=== PATIENT | female | born 1995 | race Caucasian/White ===

== ENCOUNTER 2016-05-24 21:44 | Day surgery (SDC) | payer OTHER ==
[~2016-05-24] VITALS: Ht 167.6 cm; Wt 153.7 kg
[2016-05-25] MEDS ORDERED: MORPHINE 2 MG/ML 1ML SYRINGE As Ordered ONE (00:15)
[2016-05-25] MEDS ORDERED: ISOVUE-370 76% 100ML VIAL (Q9967) As Ordered ONE (00:17)
[2016-05-25 00:55] LABS: BASO % 0.2 % (0.0-1.0); EOS # 0.2 K/mm3 (0.0-0.50); EOS % 1.2 % (0.0-3.0); LARGE UNSTAINED CELL # 0.2 K/mm3 (0.0-0.4); LARGE UNSTAINED CELL % 1.4 % (0.0-4.0); LYMPH # 3.9 K/mm3 (1.5-6.5); MEAN CORPUSCULAR HEMOGLOBIN 26.6 pg (27.0-33.0); MEAN CORPUSCULAR HGB CONC 32.1 g/dl (32.0-36.5); MEAN CORPUSCULAR VOLUME 82.8 fl (80.0-96.0); MONO # 0.7 K/mm3 (0.0-0.8); MONO % 5.4 % (0.0-5.0); NEUTROPHILS # 8.1 K/mm3 (1.8-7.7); NEUTROPHILS % 61.7 % (36.0-66.0); PLATELET COUNT, AUTOMATED 351 k/mm3 (150-450); RED CELL DISTRIBUTION WIDTH 14.2 % (11.5-14.5)
[2016-05-25 00:59] LABS: CONTROL LINE HCG INT CTR LINE PRESENT
[2016-05-25 01:03] LABS: ALBUMIN 3.3 GM/DL (3.2-5.2); ALBUMIN/GLOBULIN RATIO 0.85 (1.00-1.93); ALKALINE PHOSPHATASE 106 U/L (45-117); ALT/SGPT 39 U/L (12-78); AMYLASE 32 U/L (25-115); ANION GAP 6 MEQ/L (8-16); AST/SGOT 29 U/L (15-37); BILIRUBIN,DIRECT < 0.1 MG/DL (0.0-0.2); BILIRUBIN,TOTAL 0.3 MG/DL (0.2-1.0); BLOOD UREA NITROGEN 11 MG/DL (7-18); CALCIUM LEVEL 8.4 MG/DL (8.5-10.1); CARBON DIOXIDE LEVEL 30 MEQ/L (21-32); CHLORIDE LEVEL 106 MEQ/L (98-107); CREATININE FOR GFR 0.79 MG/DL (0.55-1.02); GLUCOSE, FASTING 91 MG/DL (70-105); POTASSIUM SERUM 3.5 MEQ/L (3.5-5.1); SODIUM LEVEL 142 MEQ/L (136-145); TOTAL PROTEIN 7.2 GM/DL (6.4-8.2)
--- NOTE | 2016-05-25 02:10 | REPUSA ---
CLINICAL HISTORY: Abdominal pain. TECHNIQUE: Multiple axial, sagittal and coronal CT images were obtained through the abdomen and pelvi s after administration of intravenous contrast material. COMMENTS: Enlarged appendix measuring 1.2 cm. Surrounding inflammatory changes. Mildly enlarged adjacent lymph nodes with largest measuring 1.2 cm. The liver is moderately enlarged with decreased attenuation without mass or defect. There is no intra or extrahepatic biliary ductal dilatation. The spleen is normal. The gallbladder is within normal li mits. The pancreas is of normal contour and attenuation characteristics. There is no evidence of adre nal mass. Both kidneys demonstrate prompt and equal nephrograms. The kidneys are normal in size, shape and conf iguration. There is no evidence of renal or ureteral mass. No renal or ureteral calculi are identifie d. There is no hydroureter or hydronephrosis. No evidence for appendicitis. There is no bowel wall thickening. No evidence for small or large miek l obstruction. There is no evidence of abdominal ascites or lymphadenopathy. Mild changes of mesenteric panniculitis. There is no evidence of intrinsic or extrinsic bladder mass. There is no pelvic ascites or lymphadeno wyatt. Mild diffuse thickening of the wall of the bladder. Images of the lung bases show no evidence of pleural or parenchymal mass. There are no pleural effusi ons. The bony structures are free of lytic or blastic lesions. Multilevel degenerative changes are seen in volving the thoracolumbar spine. Scattered calcifications are seen involving the aorta and major bran ches compatible with atherosclerosis. IMPRESSION: Acute appendicitis. No perforation or abscess formation. Thank you for your kind referral of this patient.
[2016-05-25] MEDS ORDERED: ZOSYN 3.375 GM VIAL (J2543) As Ordered ONE (02:27)
[2016-05-25] MEDS ORDERED: HYDROmorphone HCL 1 MG/ML SYRINGE (J1170) As Ordered ONE (02:49)
[2016-05-25] MEDS ORDERED: ACET50TAOT PO (03:01)
[2016-05-25] MEDS ORDERED: NEXI40CA PO (03:01)
[2016-05-25] MEDS ORDERED: XANA0.5T PO (03:01)
[2016-05-25] MEDS ORDERED: LEXA1TAB PO (03:01)
[2016-05-25] MEDS ORDERED: MORPHINE 2 MG/ML 1ML SYRINGE IV PRN ×2 (03:45→06:45)
[2016-05-25] MEDS ORDERED: KETOROLAC 30 MG/ML VIAL (J1885) IV PRN ×2 (03:45→06:45)
[2016-05-25] MEDS ORDERED: ONDANSETRON 4MG/2ML VIAL (J2405) IV PRN ×2 (03:45→06:30)
[2016-05-25] MEDS ORDERED: LR 1,000 ML IV SCH ×3 (03:45→06:45)
[2016-05-25] MEDS ORDERED: BUPIVACAINE HCL 0.25% 30 ML VIAL As Ordered ONE (04:07)
[2016-05-25] MEDS ORDERED: fentaNYL 250 MCG/5 ML INJECTION (J3010) As Ordered ONE (04:48)
[2016-05-25] MEDS ORDERED: MIDAZOLAM INJ 2 MG/2 ML VIAL (J2250) As Ordered ONE (04:48)
--- NOTE | 2016-05-25 04:48 | EDDOCDS ---
Physician Documentation [facility] Name: Cristine Saldana Age: 20 yrs Sex: Female : 1995 Arrival Date: 05/24/2016 Time: 21:44 Bed 24 Private MD: LAUREL Robin Disposition: 05/25/16 02:22 Hospitalization ordered by Abiel Thrasher for Inpatient Admission. Preliminary diagnosis is Acute appendicitis with localized peritonitis. - Bed requested for 4 Golf. - Status is Inpatient Admission. kas2 - Condition is Stable. - Problem is new. - Symptoms are unchanged. Historical: - Allergies: SULFA (SULFONAMIDES); - Home Meds: 1. Klonopin 1 mg nightly 2. xanax 1 mg PRN when leaving the house 3. Lexapro 10 mg Oral tab 1 tab once daily - PMHx: Agoraphobia; Anxiety; Panic Disorder; Depression; - PSHx: none; - Social history: Smoking status: Patient states was never smoker of tobacco. No barriers to communication noted, The patient speaks fluent Bermudian, Speaks appropriately for age. - Family history: Not pertinent. - : The pt / caregiver states he / she is not on anticoagulants. Home medication list is obtained from the patient. - Exposure Risk Screening:: None identified. MANAGER OPERATIONS AND PROCUREMENT: 05/24 21:47 LMP 04/30/2016 jyoti Vital Signs: 21:45 BP 138 / 84; Pulse 82; Resp 18; Temp 98.7(O); Pulse Ox 96% on R/A; Weight 149.69 kg / dem1 330.01 lbs; Height 5 ft. 6 in. (167.64 cm); Pain 7/10; 05/25 01:07 BP 139 / 72; Pulse 80; Resp 20; Pulse Ox 99% on R/A; Pain 4/10; kas2 01:07 BP 139 / 72; Pulse 80; Resp 20; Pulse Ox 99% on R/A; Pain 2/10; kas2 02:58 Resp 18; Temp 97.2(O); kas2 03:55 BP 142 / 69; Pulse 82; Resp 18; Temp 98.1(O); Pulse Ox 99% ; Pain 0/10; kas2 03:56 BP 142 / 69; Pulse 82; Resp 18; Temp 98.1(O); Pulse Ox 99% ; Pain 0/10; kas2 02 21:45 Body Mass Index 53.26 (149.69 kg, 167.64 cm) dem1 MDM: 00:11 IV Saline Lock ordered. cs11 00:11 NS 0.9% 1000 ml IV at bolus once ordered. cs11 00:11 morphine 2 mg IVP once ordered. cs11 00:12 CBC with Diff Ordered. EDMS 00:12 MED Profile Ordered. EDMS 00:12 Liver Profile Ordered. EDMS 00:12 Amylase Ordered. EDMS 00:12 Lipase Ordered. EDMS 00:12 Urinalysis Ordered. EDMS 00:12 Urine Culture Ordered. EDMS 00:12 HCG,Serum Qualitative Ordered. EDMS 00:13 CT ABD & PELVIS: IV Contrast Only Ordered. EDMS 01:09 Financial registration complete. pm4 02:14 CBC with Diff Reviewed. cs11 02:14 MED Profile Reviewed. cs11 02:14 Liver Profile Reviewed. cs11 02:14 Urinalysis Reviewed. cs11 02:14 Amylase Reviewed. cs11 02:14 Lipase Reviewed. cs11 02:14 HCG,Serum Qualitative Reviewed. cs11 02:19 BED REQUEST+ADM ordered. EDMS 02:20 Piperacillin-Tazobactam 3.375 grams IVPB once over 30 mins; dilute in 50mL of NS or D5W cs11 ordered. 02:41 [facility] Payment Agreement was scanned into [employer] and attached to record. hs2 02:46 Dilaudid - HYDROmorphone 0.5 mg IVP once ordered. cs11 03:51 Admission / Observation Status ordered. EDMS 03:51 NPO DIET ordered. EDMS 04:38 Admission Orders was scanned into [employer] and attached to record. pm4 Administered Medications: 00:32 Drug: NS 0.9% 1000 ml [sodium chloride 0.9 % intravenous solution] Route: IV; Rate: kas2 bolus; Site: left antecubital; 00:32 Drug: morphine 2 mg [morphine 2 mg/mL intravenous cartridge (1 mL)] Route: IVP; Site: kas2 left antecubital; 01:07 Follow up: BP 139 / 72; Pulse 80 bpm; Resp 20 bpm; Pulse Ox 99% RA; Pain 2/10 Adult; kas2 Response: No Adverse Reaction; Pain is decreased 02:39 Drug: Piperacillin-Tazobactam 3.375 grams [piperacillin-tazobactam 3.375 gram mv5 intravenous solution] Route: IVPB; Infused Over: 30 mins; Site: left antecubital; 02:52 Drug: Dilaudid - HYDROmorphone 0.5 mg [hydromorphone 1 mg/mL injection syringe (0.5 kas2 mL)] Route: IVP; Site: left antecubital; 03:56 Follow up: BP 142 / 69; Pulse 82 bpm; Resp 18 bpm; Temp 98.1 Oral; Pulse Ox 99% ; Pain kas2 0/10 Adult 03:56 Follow up: Response: No Adverse Reaction; Pain is decreased kas2 Signatures: Dispatcher [employer] EDMS Sotero Montoya, DO DO cs11 Alex Rodriguez RN RN Genaro Priest, TOOL MAKER BENCH TOOL MAKER BENCH mdr Annita Suazo, Reg Reg hs2 Charlene Song RN RN kas2 Kaiser Wilder, Reg Reg pm4 Emma Edmondson RN mv5 The chart was reviewed and I authenticate all verbal orders and agree with the evaluation and treatment provided.Attachments: 02:41 [facility] Payment Agreement hs2 04:38 Admission Orders pm4 MTDD
[2016-05-25] MEDS ORDERED: ONDANSETRON 4MG/2ML VIAL (J2405) As Ordered ONE (04:49)
[2016-05-25] MEDS ORDERED: PROPOFOL 200 MG/20 ML VIAL As Ordered ONE (04:49)
[2016-05-25] MEDS ORDERED: ROCURONIUM BROMIDE 50 MG/5 ML VIAL As Ordered ONE (04:49)
[2016-05-25] MEDS ORDERED: KETOROLAC 60 MG/2 ML VIAL (J1885) As Ordered ONE (04:49)
[2016-05-25] MEDS ORDERED: LIDOCAINE 2% INJ 100 MG/5 ML SDV (FOR ANES.) As Ordered ONE (04:49)
--- NOTE | 2016-05-25 04:49 | EDDOCDS ---
Nurse's Notes [facility] Name: Cristine Saldana Age: 20 yrs Sex: Female : 1995 Arrival Date: 05/24/2016 Time: 21:44 Bed 24 Private MD: LAUREL Robin Diagnosis: Acute appendicitis with localized peritonitis Presentation: 05/24 21:46 Presenting complaint: Patient states: Patient reports that stomach pain. Patient jmb reports that it has been present for couple of days. Patient reports when symptoms occurred in past, would go on bland diet and goes away but this time did not. Patient denies calling primary for symptoms. Risk factors: the patient reports no vaginal bleeding. Adult Sepsis Screening: The patient does not have new or worsening altered mentation. Patient's respiratory rate is less than 22. Systolic blood pressure is greater than 100. Patient has a qSOFA score of 0- Negative Sepsis Screen. Suicide/Homicide risk assessment- the patient denies having any suicidal and/or homicidal ideations and does not present with any other emotional, behavioral or mental health complaints. Status: Patient is not a lineman service or work dispatcher or dependent. Transition of care: patient was not received from another setting of care. 21:46 Acuity: DANILO Level 3 [facility] 21:46 Method Of Arrival: Walkin/Carried/Asstd [facility] Triage Assessment: 21:47 General: Appears uncomfortable, Behavior is appropriate for age, cooperative. Pain: jmb Location: abdomen Pain currently is 7 out of 10 on a pain scale. HIV screening NA for this visit Offered previously. Neurological: Level of Consciousness is awake, alert, obeys commands, Oriented to person, place, time. Respiratory: Airway is patent Respiratory effort is even, unlabored, Respiratory pattern is regular, symmetrical. GI: Abdomen is obese. Derm: Skin is pink, warm & dry. Musculoskeletal: Range of motion intact in all extremities. 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 Klonopin 1 mg nightly 2. xanax 1 mg PRN when leaving the house 3. Lexapro 10 mg Oral tab 1 tab once daily - PMHx: Agoraphobia; Anxiety; Panic Disorder; Depression; - PSHx: none; - Social history: Smoking status: Patient states was never smoker of tobacco. No barriers to communication noted, The patient speaks fluent Uzbek, Speaks appropriately for age. - Family history: Not pertinent. - : The pt / caregiver states he / she is not on anticoagulants. Home medication list is obtained from the patient. - Exposure Risk Screening:: None identified. Screenin:52 Screening information is obtained from the patient. Fall risk: No risks identified. kas2 Assistance ADL's: requires no assistance with activities of daily living. Abuse/DV Screen: The patient / caregiver reports he/she is: not in a situation that causes fear, pain or injury. Nutritional screening: No deficits noted. Advance Directives: Currently, there is no health care proxy. There is no active DNR order. There is no living will. There is no Power of Stretch Box Tender. home support is adequate. Assessment: 23:49 General: Appears in no apparent distress, comfortable, well nourished, well groomed, kas2 Behavior is appropriate for age, cooperative. Pain: Location: abdomen Pain currently is 8 out of 10 on a pain scale. Neurological: Level of Consciousness is awake, alert, Oriented to person, place, time. Cardiovascular: Capillary refill < 3 seconds Heart tones S1 S2 present Rhythm is regular. Respiratory: Airway is patent Respiratory effort is even, unlabored, Respiratory pattern is regular, symmetrical, Breath sounds are clear bilaterally. GI: Abdomen is obese, Bowel sounds present X 4 quads. Abd is tender to palpation X 4 quads. Derm: Skin is intact, Skin is dry, Skin is normal, Skin temperature is warm. 05/25 01:42 General: Appears in no apparent distress, comfortable, Behavior is appropriate for age, kas2 cooperative. Pain: Location: abdomen Pain currently is 3 out of 10 on a pain scale. Neurological: Level of Consciousness is awake, alert, Oriented to person, place, time. Cardiovascular: Rhythm is regular. Respiratory: Airway is patent Respiratory effort is even, unlabored, Respiratory pattern is regular, symmetrical. Derm: Skin is intact, Skin is dry, Skin is pink, warm & dry. Skin temperature is warm. 02:52 General: Patient resting in bed talking on the phone. Patient complaining of pain in kas2 abdomen 5/10. Meds given. No apparent distress. Airway patent and respiratory effort even and unlabored. Call dela cruz within reach. Will continue to monitor.. 03:58 General: Appears in no apparent distress, comfortable, Behavior is appropriate for age, kas2 cooperative. Pain: Denies pain. Neurological: Level of Consciousness is awake, alert, Oriented to person, place, time. Cardiovascular: Rhythm is regular. Respiratory: Airway is patent Respiratory effort is even, unlabored, Respiratory pattern is regular, symmetrical. Derm: Skin is intact, Skin is dry, Skin is pink, warm & dry. Skin temperature is warm. 04:10 General: Patient taken down to OR with RN and tech on stretcher. Verbal report given to [facility]lee CVICU NURSE.. Vital Signs: 05/24 21:45 BP 138 / 84; Pulse 82; Resp 18; Temp 98.7(O); Pulse Ox 96% on R/A; Weight 149.69 kg; [facility] Height 5 ft. 6 in. (167.64 cm); Pain 7/10; 05/25 01:07 BP 139 / 72; Pulse 80; Resp 20; Pulse Ox 99% on R/A; Pain 4/10; [facility] 01:07 BP 139 / 72; Pulse 80; Resp 20; Pulse Ox 99% on R/A; Pain 2/10; [facility] 02:58 Resp 18; Temp 97.2(O); [facility] 03:55 BP 142 / 69; Pulse 82; Resp 18; Temp 98.1(O); Pulse Ox 99% ; Pain 0/10; [facility] 03:56 BP 142 / 69; Pulse 82; Resp 18; Temp 98.1(O); Pulse Ox 99% ; Pain 0/10; [facility] 05/24 21:45 Body Mass Index 53.26 (149.69 kg, 167.64 cm) [facility] Vitals: 02 21:45 Log In Time: May 24, 2016 at 21:44. [facility] ED Course: 21:45 Patient visited by Trina Crain. [facility] 21:45 LAUREL Robin is Private Physician. [facility] 21:45 Patient moved to Waiting dem1 21:46 Patient moved to Pre RCE dem1 21:47 Triage Initiated [facility] 23:28 Kathrine Cornejo,RN is Primary Nurse. [facility] 23:28 Charlene Song RN is Primary Nurse. [facility] 23:28 Patient moved to [facility] 23:35 Patient visited by Charlene Song RN. kas2 23:53 Patient visited by Charlene Song RN. kas2 23:56 Sotero Montoya DO is Attending Physician. cs11 23:56 Patient visited by Sotero Montoya DO. cs11 23:57 Primary Nurse role handed off by Kathrine Cornejo RN flori 0207 00:32 CBC with Diff Sent. kas2 00:32 MED Profile Sent. kas2 00:32 Liver Profile Sent. kas2 00:32 Amylase Sent. kas2 00:32 Lipase Sent. kas2 00:32 Urinalysis Sent. kas2 00:32 Urine Culture Sent. kas2 00:32 HCG,Serum Qualitative Sent. kas2 00:33 Patient visited by Charlene Song RN. kas2 00:33 Inserted saline lock: 20 gauge in left antecubital area and blood collected. The kas2 patient tolerated the procedure well. No procedures done that require assistance. 01:08 Patient visited by Charlene Song RN. kas2 01:43 Patient visited by Charlene Song RN. kas2 02:15 Patient visited by Charlene Song RN. kas2 02:21 Abiel Thrasher is Hospitalizing Provider. cs11 02:41 [facility] Payment Agreement was scanned into [employer] and attached to record. hs2 02:41 CT ABD & PELVIS: IV Contrast Only Returned. EDMS 02:55 Patient visited by Charlene Song RN. kas2 02:59 Patient visited by Charlene Song RN. kas2 04:11 Patient visited by Charlene Song RN. kas2 04:29 Patient moved to 24 folri 04:38 Admission Orders was scanned into [employer] and attached to record. pm4 04:46 The patient / caregiver is instructed regarding the plan of care and ED course. kas2 04:47 Patient visited by Charlene Song RN. kas2 Administered Medications: 00:32 Drug: NS 0.9% 1000 ml [sodium chloride 0.9 % intravenous solution] Route: IV; Rate: kas2 bolus; Site: left antecubital; 00:32 Drug: morphine 2 mg [morphine 2 mg/mL intravenous cartridge (1 mL)] Route: IVP; Site: [facility] left antecubital; 01:07 Follow up: BP 139 / 72; Pulse 80 bpm; Resp 20 bpm; Pulse Ox 99% RA; Pain 2/10 Adult; kas2 Response: No Adverse Reaction; Pain is decreased 02:39 Drug: Piperacillin-Tazobactam 3.375 grams [piperacillin-tazobactam 3.375 gram mv5 intravenous solution] Route: IVPB; Infused Over: 30 mins; Site: left antecubital; 02:52 Drug: Dilaudid - HYDROmorphone 0.5 mg [hydromorphone 1 mg/mL injection syringe (0.5 kas2 mL)] Route: IVP; Site: left antecubital; 03:56 Follow up: BP 142 / 69; Pulse 82 bpm; Resp 18 bpm; Temp 98.1 Oral; Pulse Ox 99% ; Pain kas2 0/10 Adult 03:56 Follow up: Response: No Adverse Reaction; Pain is decreased kas2 Order Results: Lab Order: CBC with Diff; SPEC'M 05/25/16 00:26 Test: WHITE BLOOD COUNT; Value: 13.0; Range: 4.0-10.0; Abnormal: Above high normal; Units: K/mm3; Status: F Test: RED BLOOD COUNT; Value: 4.85; Range: 4.00-5.40; Units: M/mm3; Status: F Test: HEMOGLOBIN; Value: 12.9; Range: 12.0-16.0; Units: g/dl; Status: F Test: HEMATOCRIT; Value: 40.2; Range: 36.0-47.0; Units: %; Status: F Test: MEAN CORPUSCULAR VOLUME; Value: 82.8; Range: 80.0-96.0; Units: fl; Status: F Test: MEAN CORPUSCULAR HEMOGLOBIN; Value: 26.6; Range: 27.0-33.0; Abnormal: Below low normal; Units: pg; Status: F Test: MEAN CORPUSCULAR HGB CONC; Value: 32.1; Range: 32.0-36.5; Units: g/dl; Status: F Test: RED CELL DISTRIBUTION WIDTH; Value: 14.2; Range: 11.5-14.5; Units: %; Status: F Test: PLATELET COUNT, AUTOMATED; Value: 351; Range: 150-450; Units: k/mm3; Status: F Test: NEUTROPHILS %; Value: 61.7; Range: 36.0-66.0; Units: %; Status: F Test: LYMPH %; Value: 30.0; Range: 24.0-44.0; Units: %; Status: F Test: MONO %; Value: 5.4; Range: 0.0-5.0; Abnormal: Above high normal; Units: %; Status: F Test: EOS %; Value: 1.2; Range: 0.0-3.0; Units: %; Status: F Test: BASO %; Value: 0.2; Range: 0.0-1.0; Units: %; Status: F Test: LARGE UNSTAINED CELL %; Value: 1.4; Range: 0.0-4.0; Units: %; Status: F Test: NEUTROPHILS #; Value: 8.1; Range: 1.8-7.7; Abnormal: Above high normal; Units: K/mm3; Status: F Test: LYMPH #; Value: 3.9; Range: 1.5-6.5; Units: K/mm3; Status: F Test: MONO #; Value: 0.7; Range: 0.0-0.8; Units: K/mm3; Status: F Test: EOS #; Value: 0.2; Range: 0.0-0.50; Units: K/mm3; Status: F Test: BASO #; Value: 0.0; Range: 0.0-0.2; Units: K/mm3; Status: F Test: LARGE UNSTAINED CELL #; Value: 0.2; Range: 0.0-0.4; Units: K/mm3; Status: F Lab Order: [facility]; [facility]'M 05/25/16 00:26 Test: GLUCOSE, FASTING; Value: 91; Range: 70-105; Units: MG/DL; Status: F Test: BLOOD UREA NITROGEN; Value: 11; Range: 7-18; Units: MG/DL; Status: F Test: CREATININE FOR GFR; Value: 0.79; Range: 0.55-1.02; Units: MG/DL; Status: F Test: SODIUM LEVEL; Value: 142; Range: 136-145; Units: MEQ/L; Status: F Test: POTASSIUM SERUM; Value: 3.5; Range: 3.5-5.1; Units: MEQ/L; Status: F Test: CHLORIDE LEVEL; Value: 106; Range: 98-107; Units: MEQ/L; Status: F Test: CARBON DIOXIDE LEVEL; Value: 30; Range: 21-32; Units: MEQ/L; Status: F Test: ANION GAP; Value: 6; Range: 8-16; Abnormal: Below low normal; Units: MEQ/L; Status: F Test: CALCIUM LEVEL; Value: 8.4; Range: 8.5-10.1; Abnormal: Below low normal; Units: MG/DL; Status: F Lab Order: Liver Profile; 05/25/16:26 Test: AST/SGOT; Value: 29; Range: 15-37; Units: U/L; Status: F Test: ALT/SGPT; Value: 39; Range: 12-78; Units: U/L; Status: F Test: ALKALINE PHOSPHATASE; Value: 106; Range: 45-117; Units: U/L; Status: F Test: BILIRUBIN,TOTAL; Value: 0.3; Range: 0.2-1.0; Units: MG/DL; Status: F Test: BILIRUBIN,DIRECT; Value: < 0.1; Range: 0.0-0.2; Units: MG/DL; Status: F Test: TOTAL PROTEIN; Value: 7.2; Range: 6.4-8.2; Units: GM/DL; Status: F Test: ALBUMIN; Value: 3.3; Range: 3.2-5.2; Units: GM/DL; Status: F Test: ALBUMIN/GLOBULIN RATIO; Value: 0.85; Range: 1.00-1.93; Abnormal: Below low normal; Status: F Lab Order: Amylase; 05/25/16:26 Test: AMYLASE; Value: 32; Range: 25-115; Units: U/L; Status: F Lab Order: Lipase; 05/25/16:26 Test: LIPASE; Value: 140; Range: 73-393; Units: U/L; Status: F Lab Order: Urinalysis; 05/25/16:26 Test: APPEARANCE, URINE; Value: CLOUDY; Range: CLEAR; Abnormal: Above high normal; Status: F Test: COLOR, URINE; Value: YELLOW; Range: YELLOW; Status: F Test: PH,URINE; Value: 6.0; Range: 5.0-9.0; Units: UNITS; Status: F Test: SPECIFIC GRAVITY URINE AUTO; Value: 1.032; Range: 1.002-1.035; Status: F Test: PROTEIN, URINE AUTO; Value: 1+; Range: NEGATIVE; Abnormal: Above high normal; Units: mg/dL; Status: F Test: GLUCOSE, URINE (UA) AUTO; Value: NEGATIVE; Range: NEGATIVE; Units: mg/dL; Status: F Test: KETONE, URINE AUTO; Value: TRACE; Range: NEGATIVE; Abnormal: Above high normal; Units: mg/dL; Status: F Test: UROBILINOGEN, URINE AUTO; Value: 4.0; Range: 0.0-2.0; Abnormal: Above high normal; Units: mg/dL; Status: F Test: BILIRUBIN, URINE AUTO; Value: NEGATIVE; Range: NEGATIVE; Status: F Test: NITRITE, URINE AUTO; Value: NEGATIVE; Range: NEGATIVE; Status: F Test: LEUKOCYTE ESTERASE, URINE AUTO; Value: TRACE; Range: NEGATIVE; Abnormal: Above high normal; Status: F Test: BLOOD, URINE BLOOD; Value: NEGATIVE; Range: NEGATIVE; Status: F Test: WBC, URINE AUTO; Value: 5; Range: 0-3; Abnormal: Above high normal; Units: /HPF; Status: F Test: RBC, URINE AUTO; Value: 3; Range: 0-3; Units: /HPF; Status: F Test: BACTERIA, URINE AUTO; Value: NEGATIVE; Range: NEGATIVE; Status: F Test: SQUAMOUS EPITHELIAL CELL UR AU; Value: 14; Range: 0-6; Units: /HPF; Status: F Test: MUCUS, URINE; Value: SMALL; Range: NEGATIVE; Status: F Test: HYALINE CAST, URINE AUTO; Value: 0; Range: 0-1; Units: /LPF; Status: F Lab Order: HCG,Serum Qualitative; SPEC'M 05/25/16 00:26 Test: HCG, SERUM QUALITATIVE; Value: NEGATIVE; Range: NEGATIVE; Status: F Radiology Order: CT ABD & PELVIS: IV Contrast Only Test: CT ABD & PELVIS: IV Contrast Only REASON FOR EXAMINATION: Appendicitis; ; CLINICAL HISTORY: Abdominal pain.; TECHNIQUE: Multiple axial, sagittal and coronal CT images were obtained through the abdomen and pelvi; s after administration of intravenous contrast material.; COMMENTS:; Enlarged appendix measuring 1.2 cm. Surrounding inflammatory changes. Mildly enlarged adjacent lymph; nodes with largest measuring 1.2 cm.; The liver is moderately enlarged with decreased attenuation without mass or defect. There is no intra; or extrahepatic biliary ductal dilatation. The spleen is normal. The gallbladder is within normal li; mits. The pancreas is of normal contour and attenuation characteristics. There is no evidence of adre; nal mass.; Both kidneys demonstrate prompt and equal nephrograms. The kidneys are normal in size, shape and conf; iguration. There is no evidence of renal or ureteral mass. No renal or ureteral calculi are identifie; d. There is no hydroureter or hydronephrosis.; No evidence for appendicitis. There is no bowel wall thickening. No evidence for small or large mike; l obstruction. There is no evidence of abdominal ascites or lymphadenopathy.; Mild changes of mesenteric panniculitis.; There is no evidence of intrinsic or extrinsic bladder mass. There is no pelvic ascites or lymphadeno; wyatt. Mild diffuse thickening of the wall of the bladder.; Images of the lung bases show no evidence of pleural or parenchymal mass. There are no pleural effusi; ons.; The bony structures are free of lytic or blastic lesions. Multilevel degenerative changes are seen in; volving the thoracolumbar spine. Scattered calcifications are seen involving the aorta and major bran; ches compatible with atherosclerosis.; IMPRESSION:; Acute appendicitis. No perforation or abscess formation.; Thank you for your kind referral of this patient.; ; Outcome: 02:22 Decision to Hospitalize by Provider. 11 04:20 Discharge Assessment: patient administered narcotics - yes. Patient was admitted to the [address] or transferred to another facility. The following High Risk Discharge criteria are identified: None. Admitted to OR accompanied by nurse, accompanied by tech, via stretcher, with chart. Condition: good Condition: stable. CT Study completed. Property :Personal belongings accompany Pt. 04:47 Patient left the ED. [facility] Signatures: Dispatcher [employer] EDMS Jasmine Rodriges, EXPANSION JOINT FINISHER EXPANSION JOINT FINISHER flori Katarzyna Muniz RN RN sls1 Trina Crain dem1 Sotero Montoya DO DO cs11 Alex Rodriguez RN RN jmb Annita Suazo, Reg Reg hs2 Charlene Song,RN RN kas2 Kaiser Wilder, Reg Reg pm4 Emma Edmondson,RN RN mv5 MTDD
[2016-05-25] MEDS ORDERED: BUPIVACAINE HCL 0.25% 30 ML VIAL XX ONE (05:37)
[2016-05-25] MEDS ORDERED: NEOSTIGMINE 1MG/ML 5 ML SYRINGE (J2710) As Ordered ONE (05:44)
[2016-05-25] MEDS ORDERED: GLYCOPYRROLATE INJ 0.2 MG/ML 2 ML VIAL As Ordered ONE (05:44)
[2016-05-25] MEDS ORDERED: METOCLOPRAMIDE INJ 10MG/2ML VIAL (J2765) As Ordered ONE (05:44)
[2016-05-25] MEDS ORDERED: PERCOCET 5MG/325MG TAB PO PRN (06:30)
[2016-05-25] MEDS ORDERED: METOCLOPRAMIDE INJ 10MG/2ML VIAL (J2765) IV PRN (06:30)
[2016-05-25] MEDS ORDERED: MEPERIDINE INJ 25 MG/ML VIAL (J2175) IV PRN (06:30)
[2016-05-25] MEDS ORDERED: fentaNYL 100 MCG/2 ML INJECTION (J3010) As Ordered ONE (06:41)
[2016-05-25] MEDS: fentaNYL 100 MCG/2 ML INJECTION (J3010) IV PRN ×3 (06:42→06:57)
[2016-05-25] MEDS ORDERED: NORCO, ANEXSIA 5/325MG TABLET (HYDROcodone/ACETAMINOPHEN) PO PRN (06:45)
[2016-05-25 07:45] VITALS: BP 117/62
[2016-05-25] MEDS ORDERED: ACETAMINOPHEN TAB 650MG DOSE (2X325MG) PO PRN (08:00)
[2016-05-25 08:15] VITALS: BP 123/65
[2016-05-25] MEDS ORDERED: PIPERACILLIN/TAZOBACTAM SOD 3.375 GM in D5W MINI-BAG PLUS 50 ML IV SCH (09:00)
[2016-05-25 09:15] VITALS: BP 124/54
[2016-05-25 10:15] VITALS: BP 143/71
[2016-05-25 11:15] VITALS: BP 131/61
--- NOTE | 2016-05-25 13:17 | RO ---
DATE OF PROCEDURE: 05/25/2016 PREPROCEDURE DIAGNOSIS: Appendicitis. POSTPROCEDURE DIAGNOSIS: Appendicitis. PROCEDURE PERFORMED. Laparoscopic appendectomy. SURGEON: Dr. Abiel Thrasher ANESTHESIA: General. INDICATIONS FOR PROCEDURE: The patient is a 20-year-old woman who presented to the emergency department with a 2-day history of increasing abdominal pain, which had become settled in the right lower quadrant. Laboratory studies showed a slight elevation of the white blood cell count to 13, though her differential was normal. She had a CT scan done, which was interpreted by the teleradiologist as showing periappendiceal inflammatory changes consistent with appendicitis. She is now for a laparoscopic appendectomy. OPERATIVE PROCEDURE: The patient was placed under general endotracheal anesthesia. The patient's abdomen was prepped and draped in a sterile fashion. 0.25% Marcaine was infiltrated. A short curved supraumbilical transverse incision was made. Incision was deepened to the fascia, and the fascia was opened along the midline. Peritoneum was opened bluntly and a Vishal cannula was inserted. The abdomen was insufflated with carbon dioxide gas. The laparoscope was placed. Initial examination showed abundant fat. Visualized portions of the small and large bowel were normal. The liver and gallbladder were briefly seen and appeared normal. The patient was rolled to the left and tilted to a Trendelenburg position. A 5 mm trocar was placed low in the midline and a second 5 mm trocar was placed in the left lower quadrant. Graspers were inserted. The cecum was rotated medially. The appendix was identified. The appendix was perhaps mildly distended and hyperemic but no exudate was seen. The mesoappendix was grasped. The lateral attachments of the appendix and mesoappendix was divided with hook cautery. An opening was created through the mesoappendix, and the mesoappendix vascular bundle was stapled with a 35 mm endoscopic stapler with a vascular load. Further dissection was carried out to free any fibrofatty tissue around the base of the appendix. The base of the appendix was then stapled flush with the cecum with a blue load of 35 mm stapler. The appendix was placed in an Endopouch. The right lower quadrant was irrigated and inspected. There was no evidence of bleeding. The patient was returned to a flat position. The abdomen was deflated and the trocars were all removed. The appendix was recovered through the Vishal site and sent for permanent pathology. The fascia at the Vishal site was closed with interrupted simple sutures of 2-0 vicryl. The skin incisions were all closed with buried #5-0 Vicryl and Steri-Strips. Light dressings were applied. The patient tolerated the procedure well without apparent complication. She was awakened in the operating room, extubated and moved to the recovery room in stable condition. MARIA D
[2016-05-25 14:00] VITALS: BP 120/60
[2016-05-25] MEDS ORDERED: NORCOTAB PO (14:41)
--- NOTE | 2016-05-27 05:48 | EDDOCDS ---
Physician Documentation [facility] Name: Cristine Saldana Age: 20 yrs Sex: Female : 1995 Arrival Date: 05/24/2016 Time: 21:44 Bed 24 Private MD: LAUREL Robin Disposition: 05/25/16 02:22 Hospitalization ordered by Abiel Thrasher for Inpatient Admission. Preliminary diagnosis is Acute appendicitis with localized peritonitis. - Bed requested for 4 [place]. - Status is Inpatient Admission. kas2 - Condition is Stable. - Problem is new. - Symptoms are unchanged. Historical: - Allergies: SULFA (SULFONAMIDES); - Home Meds: 1. Klonopin 1 mg nightly 2. xanax 1 mg PRN when leaving the house 3. Lexapro 10 mg Oral tab 1 tab once daily - PMHx: Agoraphobia; Anxiety; Panic Disorder; Depression; - PSHx: none; - Social history: Smoking status: Patient states was never smoker of tobacco. No barriers to communication noted, The patient speaks fluent Danish, Speaks appropriately for age. - Family history: Not pertinent. - : The pt / caregiver states he / she is not on anticoagulants. Home medication list is obtained from the patient. - Exposure Risk Screening:: None identified. 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 6 in. (167.64 cm); Pain 7/10; 05/25 01:07 BP 139 / 72; Pulse 80; Resp 20; Pulse Ox 99% on R/A; Pain 4/10; kas2 01:07 BP 139 / 72; Pulse 80; Resp 20; Pulse Ox 99% on R/A; Pain 2/10; kas2 02:58 Resp 18; Temp 97.2(O); kas2 03:55 BP 142 / 69; Pulse 82; Resp 18; Temp 98.1(O); Pulse Ox 99% ; Pain 0/10; kas2 03:56 BP 142 / 69; Pulse 82; Resp 18; Temp 98.1(O); Pulse Ox 99% ; Pain 0/10; kas2 02/06 21:45 Body Mass Index 53.26 (149.69 kg, 167.64 cm) dem1 MDM: 00:11 IV Saline Lock ordered. cs11 00:11 NS 0.9% 1000 ml IV at bolus once ordered. cs11 00:11 morphine 2 mg IVP once ordered. cs11 00:12 CBC with Diff Ordered. EDMS 00:12 MED Profile Ordered. EDMS 00:12 Liver Profile Ordered. EDMS 00:12 Amylase Ordered. EDMS 00:12 Lipase Ordered. EDMS 00:12 Urinalysis Ordered. EDMS 00:12 Urine Culture Ordered. EDMS 00:12 HCG,Serum Qualitative Ordered. EDMS 00:13 CT ABD & PELVIS: IV Contrast Only Ordered. EDMS 01:09 Financial registration complete. pm4 02:14 CBC with Diff Reviewed. cs11 02:14 MED Profile Reviewed. cs11 02:14 Liver Profile Reviewed. cs11 02:14 Urinalysis Reviewed. cs11 02:14 Amylase Reviewed. cs11 02:14 Lipase Reviewed. cs11 02:14 HCG,Serum Qualitative Reviewed. cs11 02:19 BED REQUEST+ADM ordered. EDMS 02:20 Piperacillin-Tazobactam 3.375 grams IVPB once over 30 mins; dilute in 50mL of NS or D5W cs11 ordered. 02:41 [facility] was scanned into [employer] and attached to record. hs2 02:46 Dilaudid - HYDROmorphone 0.5 mg IVP once ordered. cs11 03:51 Admission / Observation Status ordered. EDMS 03:51 NPO DIET ordered. EDMS 04:38 Admission Orders was scanned into [email or web address] and attached to record. pm4 10:15 T-Sheet-- Draft Copy was scanned into [employer] and attached to record. gb 10:15 Consents was scanned into [employer] and attached to record. gb Administered Medications: 00:32 Drug: NS 0.9% 1000 ml [sodium chloride 0.9 % intravenous solution] Route: IV; Rate: kas2 bolus; Site: left antecubital; 00:32 Drug: morphine 2 mg [morphine 2 mg/mL intravenous cartridge (1 mL)] Route: IVP; Site: kas2 left antecubital; 01:07 Follow up: BP 139 / 72; Pulse 80 bpm; Resp 20 bpm; Pulse Ox 99% RA; Pain 2/10 Adult; kas2 Response: No Adverse Reaction; Pain is decreased 02:39 Drug: Piperacillin-Tazobactam 3.375 grams [piperacillin-tazobactam 3.375 gram mv5 intravenous solution] Route: IVPB; Infused Over: 30 mins; Site: left antecubital; 02:52 Drug: Dilaudid - HYDROmorphone 0.5 mg [hydromorphone 1 mg/mL injection syringe (0.5 kas2 mL)] Route: IVP; Site: left antecubital; 03:56 Follow up: BP 142 / 69; Pulse 82 bpm; Resp 18 bpm; Temp 98.1 Oral; Pulse Ox 99% ; Pain kas2 0/10 Adult 03:56 Follow up: Response: No Adverse Reaction; Pain is decreased kas2 Signatures: Dispatcher [employer] EDMS Briseida Cesar, Reg Reg gb Sotero Montoya, DO cs11 Alex Rodriguez RN RN kaylab Genaro Abel, QUALITY ASSURANCE INTERN QUALITY ASSURANCE INTERN mdr Annita Suazo, Reg Reg hs2 Charlene Song RN RN kas2 Kaiser Wilder, Reg Reg pm4 Emma Edmondson RN mv5 The chart was reviewed and I authenticate all verbal orders and agree with the evaluation and treatment provided.Attachments: 02:41 [facility] Payment Agreement hs2 04:38 Admission Orders pm4 10:15 T-Sheet-- Draft Copy gb Chart Complete MTDD
--- NOTE | 2016-05-27 05:48 | EDDOCDS ---
Physician Documentation [facility] Name: Cristine Saldana Age: 20 yrs Sex: Female : 1995 Arrival Date: 05/24/2016 Time: 21:44 Bed 24 Private MD: LAUREL Robin Disposition: 05/25/16 02:22 Hospitalization ordered by Abiel Thrasher for Inpatient Admission. Preliminary diagnosis is Acute appendicitis with localized peritonitis. - Bed requested for 4 [place]. - Status is Inpatient Admission. kas2 - Condition is Stable. - Problem is new. - Symptoms are unchanged. Historical: - Allergies: SULFA (SULFONAMIDES); - Home Meds: 1. Klonopin 1 mg nightly 2. xanax 1 mg PRN when leaving the house 3. Lexapro 10 mg Oral tab 1 tab once daily - PMHx: Agoraphobia; Anxiety; Panic Disorder; Depression; - PSHx: none; - Social history: Smoking status: Patient states was never smoker of tobacco. No barriers to communication noted, The patient speaks fluent [place], Speaks appropriately for age. - Family history: Not pertinent. - : The pt / caregiver states he / she is not on anticoagulants. Home medication list is obtained from the patient. - Exposure Risk Screening:: None identified. 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 6 in. (167.64 cm); Pain 7/10; 05/25 01:07 BP 139 / 72; Pulse 80; Resp 20; Pulse Ox 99% on R/A; Pain 4/10; kas2 01:07 BP 139 / 72; Pulse 80; Resp 20; Pulse Ox 99% on R/A; Pain 2/10; kas2 02:58 Resp 18; Temp 97.2(O); kas2 03:55 BP 142 / 69; Pulse 82; Resp 18; Temp 98.1(O); Pulse Ox 99% ; Pain 0/10; kas2 03:56 BP 142 / 69; Pulse 82; Resp 18; Temp 98.1(O); Pulse Ox 99% ; Pain 0/10; kas2 02/06 21:45 Body Mass Index 53.26 (149.69 kg, 167.64 cm) dem1 MDM: 00:11 IV Saline Lock ordered. cs11 00:11 NS 0.9% 1000 ml IV at bolus once ordered. cs11 00:11 morphine 2 mg IVP once ordered. cs11 00:12 CBC with Diff Ordered. EDMS 00:12 MED Profile Ordered. EDMS 00:12 Liver Profile Ordered. EDMS 00:12 Amylase Ordered. EDMS 00:12 Lipase Ordered. EDMS 00:12 Urinalysis Ordered. EDMS 00:12 Urine Culture Ordered. EDMS 00:12 HCG,Serum Qualitative Ordered. EDMS 00:13 CT ABD & PELVIS: IV Contrast Only Ordered. EDMS 01:09 Financial registration complete. pm4 02:14 CBC with Diff Reviewed. cs11 02:14 MED Profile Reviewed. cs11 02:14 Liver Profile Reviewed. cs11 02:14 Urinalysis Reviewed. cs11 02:14 Amylase Reviewed. cs11 02:14 Lipase Reviewed. cs11 02:14 HCG,Serum Qualitative Reviewed. cs11 02:19 BED REQUEST+ADM ordered. EDMS 02:20 Piperacillin-Tazobactam 3.375 grams IVPB once over 30 mins; dilute in 50mL of NS or D5W cs11 ordered. 02:41 [facility] [place] Agreement was scanned into [employer] and attached to record. hs2 02:46 Dilaudid - HYDROmorphone 0.5 mg IVP once ordered. cs11 03:51 Admission / Observation Status ordered. EDMS 03:51 NPO DIET ordered. EDMS 04:38 Admission Orders was scanned into [employer] and attached to record. pm4 10:15 T-Sheet-- Draft Copy was scanned into [employer] and attached to record. gb 10:15 Consents was scanned into [employer] and attached to record. gb Administered Medications: 00:32 Drug: NS 0.9% 1000 ml [sodium chloride 0.9 % intravenous solution] Route: IV; Rate: kas2 bolus; Site: left antecubital; 00:32 Drug: morphine 2 mg [morphine 2 mg/mL intravenous cartridge (1 mL)] Route: IVP; Site: kas2 left antecubital; 01:07 Follow up: BP 139 / 72; Pulse 80 bpm; Resp 20 bpm; Pulse Ox 99% RA; Pain 2/10 Adult; kas2 Response: No Adverse Reaction; Pain is decreased 02:39 Drug: Piperacillin-Tazobactam 3.375 grams [piperacillin-tazobactam 3.375 gram mv5 intravenous solution] Route: IVPB; Infused Over: 30 mins; Site: left antecubital; 02:52 Drug: Dilaudid - HYDROmorphone 0.5 mg [hydromorphone 1 mg/mL injection syringe (0.5 kas2 mL)] Route: IVP; Site: left antecubital; 03:56 Follow up: BP 142 / 69; Pulse 82 bpm; Resp 18 bpm; Temp 98.1 Oral; Pulse Ox 99% ; Pain kas2 0/10 Adult 03:56 Follow up: Response: No Adverse Reaction; Pain is decreased kas2 Signatures: Dispatcher [employer] EDMS Briseida Cesar, Reg Reg gb Sotero Montoya, DO cs11 Alex Rodriguez RN RN kaylab Genaro Abel, SERVICE UNIT OPERATOR OIL WELL SERVICE UNIT OPERATOR [employer]IL [employer]LL mdr Annita Suazo, Reg Reg hs2 Charlene Song RN RN kas2 Kaiser Wilder, Reg Reg pm4 Emma Edmondson RN mv5 The chart was reviewed and I authenticate all verbal orders and agree with the evaluation and treatment provided.Attachments: 02:41 [facility] Payment Agreement hs2 04:38 Admission Orders pm4 10:15 T-Sheet-- Draft Copy gb Chart Complete MTDD
--- NOTE | 2016-05-27 05:49 | EDDOCDS ---
Nurse's Notes [facility] Name: Cristine Saldana Age: 20 yrs Sex: Female : 1995 Arrival Date: 05/24/2016 Time: 21:44 Bed 24 Private MD: LAUREL Robin Diagnosis: Acute appendicitis with localized peritonitis Presentation: 05/24 21:46 Presenting complaint: Patient states: Patient reports that stomach pain. Patient jmb reports that it has been present for couple of days. Patient reports when symptoms occurred in past, would go on bland diet and goes away but this time did not. Patient denies calling primary for symptoms. Risk factors: the patient reports no vaginal bleeding. Adult Sepsis Screening: The patient does not have new or worsening altered mentation. Patient's respiratory rate is less than 22. Systolic blood pressure is greater than 100. Patient has a qSOFA score of 0- Negative Sepsis Screen. Suicide/Homicide risk assessment- the patient denies having any suicidal and/or homicidal ideations and does not present with any other emotional, behavioral or mental health complaints. Status: Patient is not a professional services consultant or dependent. Transition of care: patient was not received from another setting of care. 21:46 Acuity: DANILO Level 3 [facility] 21:46 Method Of Arrival: Walkin/Carried/Asstd [facility] Triage Assessment: 21:47 General: Appears uncomfortable, Behavior is appropriate for age, cooperative. Pain: jmb Location: abdomen Pain currently is 7 out of 10 on a pain scale. HIV screening NA for this visit Offered previously. Neurological: Level of Consciousness is awake, alert, obeys commands, Oriented to person, place, time. Respiratory: Airway is patent Respiratory effort is even, unlabored, Respiratory pattern is regular, symmetrical. GI: Abdomen is obese. Derm: Skin is pink, warm & dry. Musculoskeletal: Range of motion intact in all extremities. CUSTODIAN BLOOD BANK: 21:47 LMP 04/30/2016 [facility] Historical: - Allergies: SULFA (SULFONAMIDES); - Home Meds: 1. Klonopin 1 mg nightly 2. xanax 1 mg PRN when leaving the house 3. Lexapro 10 mg Oral tab 1 tab once daily - PMHx: Agoraphobia; Anxiety; Panic Disorder; Depression; - PSHx: none; - Social history: Smoking status: Patient states was never smoker of tobacco. No barriers to communication noted, The patient speaks fluent Spanish, Speaks appropriately for age. - Family history: Not pertinent. - : The pt / caregiver states he / she is not on anticoagulants. Home medication list is obtained from the patient. - Exposure Risk Screening:: None identified. Screenin:52 Screening information is obtained from the patient. Fall risk: No risks identified. kas2 Assistance ADL's: requires no assistance with activities of daily living. Abuse/DV Screen: The patient / caregiver reports he/she is: not in a situation that causes fear, pain or injury. Nutritional screening: No deficits noted. Advance Directives: Currently, there is no health care proxy. There is no active DNR order. There is no living will. There is no Power of Pharmacy Benefit Manager. home support is adequate. Assessment: 23:49 General: Appears in no apparent distress, comfortable, well nourished, well groomed, kas2 Behavior is appropriate for age, cooperative. Pain: Location: abdomen Pain currently is 8 out of 10 on a pain scale. Neurological: Level of Consciousness is awake, alert, Oriented to person, place, time. Cardiovascular: Capillary refill < 3 seconds Heart tones S1 S2 present Rhythm is regular. Respiratory: Airway is patent Respiratory effort is even, unlabored, Respiratory pattern is regular, symmetrical, Breath sounds are clear bilaterally. GI: Abdomen is obese, Bowel sounds present X 4 quads. Abd is tender to palpation X 4 quads. Derm: Skin is intact, Skin is dry, Skin is normal, Skin temperature is warm. 05/25 01:42 General: Appears in no apparent distress, comfortable, Behavior is appropriate for age, kas2 cooperative. Pain: Location: abdomen Pain currently is 3 out of 10 on a pain scale. Neurological: Level of Consciousness is awake, alert, Oriented to person, place, time. Cardiovascular: Rhythm is regular. Respiratory: Airway is patent Respiratory effort is even, unlabored, Respiratory pattern is regular, symmetrical. Derm: Skin is intact, Skin is dry, Skin is pink, warm & dry. Skin temperature is warm. 02:52 General: Patient resting in bed talking on the phone. Patient complaining of pain in kas2 abdomen 5/10. Meds given. No apparent distress. Airway patent and respiratory effort even and unlabored. Call dela cruz within reach. Will continue to monitor.. 03:58 General: Appears in no apparent distress, comfortable, Behavior is appropriate for age, kas2 cooperative. Pain: Denies pain. Neurological: Level of Consciousness is awake, alert, Oriented to person, place, time. Cardiovascular: Rhythm is regular. Respiratory: Airway is patent Respiratory effort is even, unlabored, Respiratory pattern is regular, symmetrical. Derm: Skin is intact, Skin is dry, Skin is pink, warm & dry. Skin temperature is warm. 04:10 General: Patient taken down to OR with RN and tech on stretcher. Verbal report given to [facility] [employer].. Vital Signs: 05/24 21:45 BP 138 / 84; Pulse 82; Resp 18; Temp 98.7(O); Pulse Ox 96% on R/A; Weight 149.69 kg; [facility] Height 5 ft. 6 in. (167.64 cm); Pain 7/10; 05/25 01:07 BP 139 / 72; Pulse 80; Resp 20; Pulse Ox 99% on R/A; Pain 4/10; [facility] 01:07 BP 139 / 72; Pulse 80; Resp 20; Pulse Ox 99% on R/A; Pain 2/10; [facility] 02:58 Resp 18; Temp 97.2(O); [facility] 03:55 BP 142 / 69; Pulse 82; Resp 18; Temp 98.1(O); Pulse Ox 99% ; Pain 0/10; [facility] 03:56 BP 142 / 69; Pulse 82; Resp 18; Temp 98.1(O); Pulse Ox 99% ; Pain 0/10; [facility] 05/24 21:45 Body Mass Index 53.26 (149.69 kg, 167.64 cm) [facility] Vitals: 02 21:45 Log In Time: May 24, 2016 at 21:44. [facility] ED Course: 21:45 Patient visited by Trina Crain. [facility] 21:45 LAUREL Robin is Private Physician. [facility] 21:45 Patient moved to Waiting dem1 21:46 Patient moved to Pre RCE dem1 21:47 Triage Initiated [facility] 23:28 Kathrine Cornejo,RN is Primary Nurse. [facility] 23:28 Charlene Song RN is Primary Nurse. [facility] 23:28 Patient moved to 10 [facility] 23:35 Patient visited by Charlene Song RN. kas2 23:53 Patient visited by Charlene Song RN. kas2 23:56 Sotero Montoya DO is Attending Physician. cs11 23:56 Patient visited by Sotero Montoya DO. cs11 23:57 Primary Nurse role handed off by Kathrine Cornejo RN flori 05/25 00:32 CBC with Diff Sent. kas2 00:32 MED Profile Sent. kas2 00:32 Liver Profile Sent. kas2 00:32 Amylase Sent. kas2 00:32 Lipase Sent. kas2 00:32 Urinalysis Sent. kas2 00:32 Urine Culture Sent. kas2 00:32 HCG,Serum Qualitative Sent. kas2 00:33 Patient visited by Charlene Song RN. kas2 00:33 Inserted saline lock: 20 gauge in left antecubital area and blood collected. The kas2 patient tolerated the procedure well. No procedures done that require assistance. 01:08 Patient visited by Charlene Song RN. kas2 01:43 Patient visited by Charlene Song RN. kas2 02:15 Patient visited by Charlene Song RN. kas2 02:21 Abiel Thrasher is Hospitalizing Provider. cs11 02:41 [facility] Payment Agreement was scanned into [employer] and attached to record. hs2 02:41 CT ABD & PELVIS: IV Contrast Only Returned. EDMS 02:55 Patient visited by Charlene Song RN. kas2 02:59 Patient visited by Charlene Song RN. kas2 04:11 Patient visited by Charlene Song RN. kas2 04:29 Patient moved to 24 flori 04:38 Admission Orders was scanned into [employer] and attached to record. pm4 04:46 The patient / caregiver is instructed regarding the plan of care and ED course. kas2 04:47 Patient visited by Charlene Song RN. kas2 10:15 T-Sheet-- Draft Copy was scanned into [employer] and attached to record. gb 10:15 Consents was scanned into [employer] and attached to record. gb Administered Medications: 00:32 Drug: NS 0.9% 1000 ml [sodium chloride 0.9 % intravenous solution] Route: IV; Rate: kas2 bolus; Site: left antecubital; 00:32 Drug: morphine 2 mg [morphine 2 mg/mL intravenous cartridge (1 mL)] Route: IVP; Site: kas2 left antecubital; 01:07 Follow up: BP 139 / 72; Pulse 80 bpm; Resp 20 bpm; Pulse Ox 99% RA; Pain 2/10 Adult; kas2 Response: No Adverse Reaction; Pain is decreased 02:39 Drug: Piperacillin-Tazobactam 3.375 grams [piperacillin-tazobactam 3.375 gram mv5 intravenous solution] Route: IVPB; Infused Over: 30 mins; Site: left antecubital; 02:52 Drug: Dilaudid - HYDROmorphone 0.5 mg [hydromorphone 1 mg/mL injection syringe (0.5 kas2 mL)] Route: IVP; Site: left antecubital; 03:56 Follow up: BP 142 / 69; Pulse 82 bpm; Resp 18 bpm; Temp 98.1 Oral; Pulse Ox 99% ; Pain kas2 0/10 Adult 03:56 Follow up: Response: No Adverse Reaction; Pain is decreased kas2 Attachments: 10:15 Consents gb Order Results: Lab Order: CBC with Diff; SPEC'M 05/25/16 00:26 Test: WHITE BLOOD COUNT; Value: 13.0; Range: 4.0-10.0; Abnormal: Above high normal; Units: K/mm3; Status: F Test: RED BLOOD COUNT; Value: 4.85; Range: 4.00-5.40; Units: M/mm3; Status: F Test: HEMOGLOBIN; Value: 12.9; Range: 12.0-16.0; Units: g/dl; Status: F Test: HEMATOCRIT; Value: 40.2; Range: 36.0-47.0; Units: %; Status: F Test: MEAN CORPUSCULAR VOLUME; Value: 82.8; Range: 80.0-96.0; Units: fl; Status: F Test: MEAN CORPUSCULAR HEMOGLOBIN; Value: 26.6; Range: 27.0-33.0; Abnormal: Below low normal; Units: pg; Status: F Test: MEAN CORPUSCULAR HGB CONC; Value: 32.1; Range: 32.0-36.5; Units: g/dl; Status: F Test: RED CELL DISTRIBUTION WIDTH; Value: 14.2; Range: 11.5-14.5; Units: %; Status: F Test: PLATELET COUNT, AUTOMATED; Value: 351; Range: 150-450; Units: k/mm3; Status: F Test: NEUTROPHILS %; Value: 61.7; Range: 36.0-66.0; Units: %; Status: F Test: LYMPH %; Value: 30.0; Range: 24.0-44.0; Units: %; Status: F Test: MONO %; Value: 5.4; Range: 0.0-5.0; Abnormal: Above high normal; Units: %; Status: F Test: EOS %; Value: 1.2; Range: 0.0-3.0; Units: %; Status: F Test: BASO %; Value: 0.2; Range: 0.0-1.0; Units: %; Status: F Test: LARGE UNSTAINED CELL %; Value: 1.4; Range: 0.0-4.0; Units: %; Status: F Test: NEUTROPHILS #; Value: 8.1; Range: 1.8-7.7; Abnormal: Above high normal; Units: K/mm3; Status: F Test: LYMPH #; Value: 3.9; Range: 1.5-6.5; Units: K/mm3; Status: F Test: MONO #; Value: 0.7; Range: 0.0-0.8; Units: K/mm3; Status: F Test: EOS #; Value: 0.2; Range: 0.0-0.50; Units: K/mm3; Status: F Test: BASO #; Value: 0.0; Range: 0.0-0.2; Units: K/mm3; Status: F Test: LARGE UNSTAINED CELL #; Value: 0.2; Range: 0.0-0.4; Units: K/mm3; Status: F Lab Order: [facility]; [facility]M 05/25/16 00:26 Test: GLUCOSE, FASTING; Value: 91; Range: 70-105; Units: MG/DL; Status: F Test: BLOOD UREA NITROGEN; Value: 11; Range: 7-18; Units: MG/DL; Status: F Test: CREATININE FOR GFR; Value: 0.79; Range: 0.55-1.02; Units: MG/DL; Status: F Test: SODIUM LEVEL; Value: 142; Range: 136-145; Units: MEQ/L; Status: F Test: POTASSIUM SERUM; Value: 3.5; Range: 3.5-5.1; Units: MEQ/L; Status: F Test: CHLORIDE LEVEL; Value: 106; Range: 98-107; Units: MEQ/L; Status: F Test: CARBON DIOXIDE LEVEL; Value: 30; Range: 21-32; Units: MEQ/L; Status: F Test: ANION GAP; Value: 6; Range: 8-16; Abnormal: Below low normal; Units: MEQ/L; Status: F Test: CALCIUM LEVEL; Value: 8.4; Range: 8.5-10.1; Abnormal: Below low normal; Units: MG/DL; Status: F Lab Order: Liver Profile; 05/25/16:26 Test: AST/SGOT; Value: 29; Range: 15-37; Units: U/L; Status: F Test: ALT/SGPT; Value: 39; Range: 12-78; Units: U/L; Status: F Test: ALKALINE PHOSPHATASE; Value: 106; Range: 45-117; Units: U/L; Status: F Test: BILIRUBIN,TOTAL; Value: 0.3; Range: 0.2-1.0; Units: MG/DL; Status: F Test: BILIRUBIN,DIRECT; Value: < 0.1; Range: 0.0-0.2; Units: MG/DL; Status: F Test: TOTAL PROTEIN; Value: 7.2; Range: 6.4-8.2; Units: GM/DL; Status: F Test: ALBUMIN; Value: 3.3; Range: 3.2-5.2; Units: GM/DL; Status: F Test: ALBUMIN/GLOBULIN RATIO; Value: 0.85; Range: 1.00-1.93; Abnormal: Below low normal; Status: F Lab Order: Amylase; 05/25/16:26 Test: AMYLASE; Value: 32; Range: 25-115; Units: U/L; Status: F Lab Order: Lipase; 05/25/16 00:26 Test: LIPASE; Value: 140; Range: 73-393; Units: U/L; Status: F Lab Order: Urinalysis; 05/25/16 00:26 Test: APPEARANCE, URINE; Value: CLOUDY; Range: CLEAR; Abnormal: Above high normal; Status: F Test: COLOR, URINE; Value: YELLOW; Range: YELLOW; Status: F Test: PH,URINE; Value: 6.0; Range: 5.0-9.0; Units: UNITS; Status: F Test: SPECIFIC GRAVITY URINE AUTO; Value: 1.032; Range: 1.002-1.035; Status: F Test: PROTEIN, URINE AUTO; Value: 1+; Range: NEGATIVE; Abnormal: Above high normal; Units: mg/dL; Status: F Test: GLUCOSE, URINE (UA) AUTO; Value: NEGATIVE; Range: NEGATIVE; Units: mg/dL; Status: F Test: KETONE, URINE AUTO; Value: TRACE; Range: NEGATIVE; Abnormal: Above high normal; Units: mg/dL; Status: F Test: UROBILINOGEN, URINE AUTO; Value: 4.0; Range: 0.0-2.0; Abnormal: Above high normal; Units: mg/dL; Status: F Test: BILIRUBIN, URINE AUTO; Value: NEGATIVE; Range: NEGATIVE; Status: F Test: NITRITE, URINE AUTO; Value: NEGATIVE; Range: NEGATIVE; Status: F Test: LEUKOCYTE ESTERASE, URINE AUTO; Value: TRACE; Range: NEGATIVE; Abnormal: Above high normal; Status: F Test: BLOOD, URINE BLOOD; Value: NEGATIVE; Range: NEGATIVE; Status: F Test: WBC, URINE AUTO; Value: 5; Range: 0-3; Abnormal: Above high normal; Units: /HPF; Status: F Test: RBC, URINE AUTO; Value: 3; Range: 0-3; Units: /HPF; Status: F Test: BACTERIA, URINE AUTO; Value: NEGATIVE; Range: NEGATIVE; Status: F Test: SQUAMOUS EPITHELIAL CELL UR AU; Value: 14; Range: 0-6; Units: /HPF; Status: F Test: MUCUS, URINE; Value: SMALL; Range: NEGATIVE; Status: F Test: HYALINE CAST, URINE AUTO; Value: 0; Range: 0-1; Units: /LPF; Status: F Lab Order: HCG,Serum Qualitative; SPEC'M 05/25/16 00:26 Test: HCG, SERUM QUALITATIVE; Value: NEGATIVE; Range: NEGATIVE; Status: F Radiology Order: CT ABD & PELVIS: IV Contrast Only Test: CT ABD & PELVIS: IV Contrast Only REASON FOR EXAMINATION: Appendicitis; ; CLINICAL HISTORY: Abdominal pain.; TECHNIQUE: Multiple axial, sagittal and coronal CT images were obtained through the abdomen and pelvi; s after administration of intravenous contrast material.; COMMENTS:; Enlarged appendix measuring 1.2 cm. Surrounding inflammatory changes. Mildly enlarged adjacent lymph; nodes with largest measuring 1.2 cm.; The liver is moderately enlarged with decreased attenuation without mass or defect. There is no intra; or extrahepatic biliary ductal dilatation. The spleen is normal. The gallbladder is within normal li; mits. The pancreas is of normal contour and attenuation characteristics. There is no evidence of adre; nal mass.; Both kidneys demonstrate prompt and equal nephrograms. The kidneys are normal in size, shape and conf; iguration. There is no evidence of renal or ureteral mass. No renal or ureteral calculi are identifie; d. There is no hydroureter or hydronephrosis.; No evidence for appendicitis. There is no bowel wall thickening. No evidence for small or large mike; l obstruction. There is no evidence of abdominal ascites or lymphadenopathy.; Mild changes of mesenteric panniculitis.; There is no evidence of intrinsic or extrinsic bladder mass. There is no pelvic ascites or lymphadeno; wyatt. Mild diffuse thickening of the wall of the bladder.; Images of the lung bases show no evidence of pleural or parenchymal mass. There are no pleural effusi; ons.; The bony structures are free of lytic or blastic lesions. Multilevel degenerative changes are seen in; volving the thoracolumbar spine. Scattered calcifications are seen involving the aorta and major bran; ches compatible with atherosclerosis.; IMPRESSION:; Acute appendicitis. No perforation or abscess formation.; Thank you for your kind referral of this patient.; ; Outcome: 02:22 Decision to Hospitalize by Provider. cs11 04:20 Discharge Assessment: patient administered narcotics - yes. Patient was admitted to the [address] or transferred to another facility. The following High Risk Discharge criteria are identified: None. Admitted to OR accompanied by nurse, accompanied by tech, via stretcher, with chart. Condition: good Condition: stable. CT Study completed. Property :Personal belongings accompany Pt. 04:47 Patient left the ED. [facility] Signatures: Dispatcher [employer] EDMD Briseida Cesar, Reg Reg gb Zahira, Jasmine, BACK TENDER PULP DRIER BACK TENDER PULP DRIER flori Katarzyna Muniz, RN RN sls1 Trina Crain dem1 Sotero Montoya, DO DO cs11 Alex Rodriguez,RN RN jmb Annita Suazo, Reg Reg hs2 Charlene Song,RN RN kas2 Kaiser Wilder, Reg Reg pm4 Emma EdmondsonRN RN mv5 Chart Complete MTDD
== END 2016-05-25 15:51 | disposition home or self-care (01) ==
LOC: M ED 21:44 → M OROP 21:45 → M MSPAV 05-25 07:30 → M OROP 05-25 15:51 → M MSPAV 05-25 15:51
PROVIDERS: ATTEND Surgery
DX: K35.3 Acute appendicitis with localized peritonitis (principal); F41.9 Anxiety disorder, unspecified; F40.01 Agoraphobia with panic disorder; F32.9 Major depressive disorder, single episode, unspecified; K21.9 Gastro-esophageal reflux disease without esophagitis; G43.909 Migraine, unspecified, not intractable, without status migrainosus; Z79.899 Other long term (current) drug therapy; Z88.2 Allergy status to sulfonamides
CPT/HCPCS: 36415; 44970; 74177; 80048; 80076; 81001; 82150; 83690; 84703; 85025; 87086; 88304; 96374; 96375; 99285; J1170; J1885; J2250; J2405; J2543; J2710; J2765; J3010; Q9967

== ENCOUNTER 2016-06-02 22:37 | Emergency (ER) | payer OTHER ==
[~2016-06-02 22:37] MED LIST: ACET50TAOT PO; LEXA1TAB PO; NEXI40CA PO; NORCOTAB PO; XANA0.5T PO
[2016-06-02] MEDS ORDERED: AUGMENTIN 875 MG TAB As Ordered ONE (23:27)
--- NOTE | 2016-06-03 00:04 | EDDOCDS ---
Nurse's Notes [facility] Name: Cristine Saldana Age: 20 yrs Sex: Female : 1995 Arrival Date: 06/02/2016 Time: 22:37 Bed 7 Private MD: LAUREL Robin Diagnosis: Encounter for other postprocedural aftercare Presentation: 06/02 22:46 Presenting complaint: Patient states: that she had an appendectomy approx 1 week ago. ms18 Pt states that the pain has increased and she has noticed a yellow discharge from her umbilical area, increased redness, and pt states that it smells bad. Adult Sepsis Screening: The patient does not have new or worsening altered mentation. Patient's respiratory rate is less than 22. Systolic blood pressure is greater than 100. Patient has a qSOFA score of 0- Negative Sepsis Screen. Suicide/Homicide risk assessment- the patient denies having any suicidal and/or homicidal ideations and does not present with any other emotional, behavioral or mental health complaints. Status: The patient is a dependent. Transition of care: patient was not received from another setting of care. 22:46 Acuity: DANILO Level 3 ms18 22:46 Method Of Arrival: Walkin/Carried/Asstd ms18 Triage Assessment: 22:50 General: Appears in no apparent distress, comfortable, obese, Behavior is appropriate ms18 for age, cooperative, pleasant. Pain: Location: umbilical area Pain currently is 5 out of 10 on a pain scale. HIV screening NA for this visit Offered previously. Neurological: No deficits noted. Respiratory: No deficits noted. Derm: Skin is pink, warm & dry. OPTION TRADER: 22:50 LMP 05/27/2016 ms18 Historical: - Allergies: SULFA (SULFONAMIDES); - Home Meds: 1. Lexapro 10 mg Oral tab 1 tab once daily 2. xanax 0.5 mg 1 mg three times a day PRN when leaving the house 3. Nexium 40 mg Oral cpDR 1 cap once daily - PMHx: Agoraphobia; Anxiety; Depression; Panic Disorder; GERD; - PSHx: Appendectomy; - Social history: Smoking status: Patient states was never smoker of tobacco. No barriers to communication noted, The patient speaks fluent Romanian. - Family history: Not pertinent. - : The pt / caregiver states he / she is not on anticoagulants. Home medication list is obtained from the patient. - Exposure Risk Screening:: None identified. Screenin:32 Screening information is obtained from the patient. Fall risk: No risks identified. cf2 Assistance ADL's: requires no assistance with activities of daily living. Abuse/DV Screen: The patient / caregiver reports he/she is: not in a situation that causes fear, pain or injury. Nutritional screening: No deficits noted. Advance Directives: Further advance directive information is declined. home support is adequate. Assessment: 23:32 Adult Sepsis Screening: The patient does not have new or worsening altered mentation. cf2 Patient's respiratory rate is less than 22. Systolic blood pressure is greater than 100. Patient has a qSOFA score of 0- Negative Sepsis Screen. General: Appears in no apparent distress, comfortable, Behavior is appropriate for age, cooperative, Reports chills for 0-12 hours. Pain: Location: abdomen. Derm: Patient with erythema and scant purulent drainage noted to periumbilical lap surgical site. Vital Signs: 22:40 BP 139 / 67; Pulse 103; Resp 18 S; Temp 98.4(O); Pulse Ox 99% on R/A; Weight 151.95 kg gr2 (R); Height 5 ft. 6 in. (167.64 cm) (R); Pain 5/10; 23:32 BP 132 / 78; Pulse 98; Resp 16; Temp 98.0; Pulse Ox 99% ; Pain 5/10; cf2 22:40 Body Mass Index 54.07 (151.95 kg, 167.64 cm) gr2 Vitals: 22:40 Log In Time: June 02, 2016 at 22:40. gr2 ED Course: 22:39 Patient visited by Cheryle Nicole. gr2 22:39 Lobito [facility] is Private Physician. gr2 22:39 Patient moved to Waiting gr2 22:41 Patient visited by Cheryle Nicole. gr2 22:41 Patient moved to Pre RCE gr2 22:48 Triage Initiated ms18 22:53 Patient moved to 7 b 22:54 Sotero Montoya DO is Attending Physician. cs11 22:54 Patient visited by Sotero Montoya DO. cs11 22:54 Patient visited by Sotero Montoya DO. cs11 23:25 [facility] Payment Agreement was scanned into [employer] and attached to record. pm4 23:26 Trisha Gonzales,OSKAR is Primary Nurse. cf2 23:26 Patient visited by Trisha Gonzales RN. cf2 23:27 Abiel Thrasher is Referral Physician. cs11 23:32 Patient visited by Trisha Gonzales RN. cf2 23:32 The patient / caregiver is instructed regarding the plan of care and ED course. Patient cf2 has correct armband on for positive identification. Placed in gown. Bed in low position. Call light in reach. Side rails up X 1. Side rails up X2. Adult w/ patient. Property :Personal belongings accompany Pt. Door closed. Noise minimized. Visitors limited. Lights dimmed. Moved to private room. PO fluids given. Verbal reassurance given. Warm blanket given. Pillow given. Head of bed elevated. 23:32 No IV's were initiated during this patient's visit. No procedures done that require cf2 assistance. 06/03 00:02 Patient visited by Trisha Gonzales RN. cf2 Administered Medications: 06/02 23:35 Drug: Amoxicillin-Clavulanate 1 tabs [amoxicillin 875 mg-potassium clavulanate 125 mg cf2 tablet (1 tabs)] Route: PO; Order Results: There are currently no results for this order. Outcome: 23:27 Discharge ordered by Provider. cs11 23:32 Discharge Assessment: Patient awake, alert and oriented x 3. No cognitive and/or cf2 functional deficits noted. Patient verbalized understanding of disposition instructions. Patient awake and alert. Oriented to person, place and time. patient administered narcotics - no. The following High Risk Discharge criteria are identified: None. Discharged to home ambulatory, with significant other. Condition: good Condition: stable. Discharge instructions given to patient, Instructed on discharge instructions, follow up and referral plans. Demonstrated understanding of instructions, medications, Prescriptions given X 1. No special radiology studies were completed. 06/03 00:03 Patient left the ED. cf2 Signatures: Sotero Montoya, DO cs11 Cheryle Nicole gr2 Alex Rodriguez RN RN jmb Smith, Mallory, RN RN ms18 Trisha Gonzales,OSKAR RN cf2 Kaiser Wilder, Reg Reg pm4 MTDD
--- NOTE | 2016-06-03 00:04 | EDDOCDS ---
Physician Documentation [facility] Name: Cristine Saldana Age: 20 yrs Sex: Female : 1995 Arrival Date: 06/02/2016 Time: 22:37 Bed 7 Private MD: LAUREL Robin Disposition: 06/02/16 23:27 Discharged to Home/Self Care. Impression: Encounter for other postprocedural aftercare. - Condition is Stable. - Prescriptions for Augmentin 500- 125 mg Oral Tablet - take 1 tablet by ORAL route every 8 hours for 5 days; 14 tablet. - Medication Reconciliation, Local Pharmacy Hours form. - Follow up: Abiel Thrasher; When: Call to arrange an appointment; Reason: Recheck today's complaints. - Problem is new. - Symptoms have improved. Historical: - Allergies: SULFA (SULFONAMIDES); - Home Meds: 1. Lexapro 10 mg Oral tab 1 tab once daily 2. xanax 0.5 mg 1 mg three times a day PRN when leaving the house 3. Nexium 40 mg Oral cpDR 1 cap once daily - PMHx: Agoraphobia; Anxiety; Depression; Panic Disorder; GERD; - PSHx: Appendectomy; - Social history: Smoking status: Patient states was never smoker of tobacco. No barriers to communication noted, The patient speaks fluent Greenlandic. - Family history: Not pertinent. - : The pt / caregiver states he / she is not on anticoagulants. Home medication list is obtained from the patient. - Exposure Risk Screening:: None identified. 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 6 in. (167.64 cm) (R); Pain 5/10; 23:32 BP 132 / 78; Pulse 98; Resp 16; Temp 98.0; Pulse Ox 99% ; Pain 5/10; cf2 22:40 Body Mass Index 54.07 (151.95 kg, 167.64 cm) gr2 MDM: 23:14 Financial registration complete. pm4 23:18 Amoxicillin-Clavulanate 875 mg 1 tabs PO once ordered. cs11 23:25 [facility] Payment Agreement was scanned into [employer] and attached to record. pm4 Administered Medications: 23:35 Drug: Amoxicillin-Clavulanate 1 tabs [amoxicillin 875 mg-potassium clavulanate 125 mg cf2 tablet (1 tabs)] Route: PO; Signatures: Sotero Montoya DO DO cs11 Sonia Song RN RN ms18 Trisha Gonzales RN RN cf2 Kaiser Wilder, Reg Reg pm4 The chart was reviewed and I authenticate all verbal orders and agree with the evaluation and treatment provided.Attachments: 23:25 [facility] Payment Agreement pm4 MTDD
--- NOTE | 2016-06-05 01:04 | EDDOCDS ---
Physician Documentation [facility] Name: Cristine Saldana Age: 20 yrs Sex: Female : 1995 Arrival Date: 06/02/2016 Time: 22:37 Bed 7 Private MD: LAUREL Robin Disposition: 06/02/16 23:27 Discharged to Home/Self Care. Impression: Encounter for other postprocedural aftercare. - Condition is Stable. - Prescriptions for Augmentin 500- 125 mg Oral Tablet - take 1 tablet by ORAL route every 8 hours for 5 days; 14 tablet. - Medication Reconciliation, Local Pharmacy Hours form. - Follow up: Abiel Thrasher; When: Call to arrange an appointment; Reason: Recheck today's complaints. - Problem is new. - Symptoms have improved. Historical: - Allergies: SULFA (SULFONAMIDES); - Home Meds: 1. Lexapro 10 mg Oral tab 1 tab once daily 2. xanax 0.5 mg 1 mg three times a day PRN when leaving the house 3. Nexium 40 mg Oral cpDR 1 cap once daily - PMHx: Agoraphobia; Anxiety; Depression; Panic Disorder; GERD; - PSHx: Appendectomy; - Social history: Smoking status: Patient states was never smoker of tobacco. No barriers to communication noted, The patient speaks fluent Portuguese. - Family history: Not pertinent. - : The pt / caregiver states he / she is not on anticoagulants. Home medication list is obtained from the patient. - Exposure Risk Screening:: None identified. 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 6 in. (167.64 cm) (R); Pain 5/10; 23:32 BP 132 / 78; Pulse 98; Resp 16; Temp 98.0; Pulse Ox 99% ; Pain 5/10; cf2 22:40 Body Mass Index 54.07 (151.95 kg, 167.64 cm) gr2 MDM: 23:14 Financial registration complete. pm4 23:18 Amoxicillin-Clavulanate 875 mg 1 tabs PO once ordered. cs11 23:25 [facility] Payment Agreement was scanned into [employer] and attached to record. pm4 06/03 09:40 T-Sheet-- Draft Copy was scanned into [employer] and attached to record. gb Administered Medications: 06/02 23:35 Drug: Amoxicillin-Clavulanate 1 tabs [amoxicillin 875 mg-potassium clavulanate 125 mg cf2 tablet (1 tabs)] Route: PO; Signatures: Briseida Cesar, Reg Reg gb Sotero Montoya, DO cs11 Sonia Song,RN RN ms18 Trisha GonzalesRN RN cf2 Kaiser Wilder, Reg Reg pm4 The chart was reviewed and I authenticate all verbal orders and agree with the evaluation and treatment provided.Attachments: 23:25 [facility] Payment Agreement pm4 06/03 09:40 T-Sheet-- Draft Copy gb Chart Complete MTDD
--- NOTE | 2016-06-05 01:04 | EDDOCDS ---
Nurse's Notes [facility] Name: Cristine Saldana Age: 20 yrs Sex: Female : 1995 Arrival Date: 06/02/2016 Time: 22:37 Bed 7 Private MD: LAUREL Robin Diagnosis: Encounter for other postprocedural aftercare Presentation: 06/02 22:46 Presenting complaint: Patient states: that she had an appendectomy approx 1 week ago. ms18 Pt states that the pain has increased and she has noticed a yellow discharge from her umbilical area, increased redness, and pt states that it smells bad. Adult Sepsis Screening: The patient does not have new or worsening altered mentation. Patient's respiratory rate is less than 22. Systolic blood pressure is greater than 100. Patient has a qSOFA score of 0- Negative Sepsis Screen. Suicide/Homicide risk assessment- the patient denies having any suicidal and/or homicidal ideations and does not present with any other emotional, behavioral or mental health complaints. Status: The patient is a dependent. Transition of care: patient was not received from another setting of care. 22:46 Acuity: DANILO Level 3 ms18 22:46 Method Of Arrival: Walkin/Carried/Asstd ms18 Triage Assessment: 22:50 General: Appears in no apparent distress, comfortable, obese, Behavior is appropriate ms18 for age, cooperative, pleasant. Pain: Location: umbilical area Pain currently is 5 out of 10 on a pain scale. HIV screening NA for this visit Offered previously. Neurological: No deficits noted. Respiratory: No deficits noted. Derm: Skin is pink, warm & dry. 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 Lexapro 10 mg Oral tab 1 tab once daily 2. xanax 0.5 mg 1 mg three times a day PRN when leaving the house 3. Nexium 40 mg Oral cpDR 1 cap once daily - PMHx: Agoraphobia; Anxiety; Depression; Panic Disorder; GERD; - PSHx: Appendectomy; - Social history: Smoking status: Patient states was never smoker of tobacco. No barriers to communication noted, The patient speaks fluent Croatian. - Family history: Not pertinent. - : The pt / caregiver states he / she is not on anticoagulants. Home medication list is obtained from the patient. - Exposure Risk Screening:: None identified. Screenin:32 Screening information is obtained from the patient. Fall risk: No risks identified. cf2 Assistance ADL's: requires no assistance with activities of daily living. Abuse/DV Screen: The patient / caregiver reports he/she is: not in a situation that causes fear, pain or injury. Nutritional screening: No deficits noted. Advance Directives: Further advance directive information is declined. home support is adequate. Assessment: 23:32 Adult Sepsis Screening: The patient does not have new or worsening altered mentation. cf2 Patient's respiratory rate is less than 22. Systolic blood pressure is greater than 100. Patient has a qSOFA score of 0- Negative Sepsis Screen. General: Appears in no apparent distress, comfortable, Behavior is appropriate for age, cooperative, Reports chills for 0-12 hours. Pain: Location: abdomen. Derm: Patient with erythema and scant purulent drainage noted to periumbilical lap surgical site. Vital Signs: 22:40 BP 139 / 67; Pulse 103; Resp 18 S; Temp 98.4(O); Pulse Ox 99% on R/A; Weight 151.95 kg gr2 (R); Height 5 ft. 6 in. (167.64 cm) (R); Pain 5/10; 23:32 BP 132 / 78; Pulse 98; Resp 16; Temp 98.0; Pulse Ox 99% ; Pain 5/10; cf2 22:40 Body Mass Index 54.07 (151.95 kg, 167.64 cm) gr2 Vitals: 22:40 Log In Time: June 02, 2016 at 22:40. gr2 ED Course: 22:39 Patient visited by Cheryle Nicole. gr2 22:39 [facility] is Private Physician. gr2 22:39 Patient moved to Waiting gr2 22:41 Patient visited by Cheryle Nicole. gr2 22:41 Patient moved to Pre RCE gr2 22:48 Triage Initiated ms18 22:53 Patient moved to 7 b 22:54 Sotero Montoya DO is Attending Physician. cs11 22:54 Patient visited by Sotero Montoya DO. cs11 22:54 Patient visited by Sotero Montoya DO. cs11 23:25 [facility] Payment Agreement was scanned into [employer] and attached to record. pm4 23:26 Trisha Gonzales,OSKAR is Primary Nurse. cf2 23:26 Patient visited by Trisha Gonzales RN. cf2 23:27 Abiel Thrasher is Referral Physician. cs11 23:32 Patient visited by Trisha Gonzales RN. cf2 23:32 The patient / caregiver is instructed regarding the plan of care and ED course. Patient cf2 has correct armband on for positive identification. Placed in gown. Bed in low position. Call light in reach. Side rails up X 1. Side rails up X2. Adult w/ patient. Property :Personal belongings accompany Pt. Door closed. Noise minimized. Visitors limited. Lights dimmed. Moved to private room. PO fluids given. Verbal reassurance given. Warm blanket given. Pillow given. Head of bed elevated. 23:32 No IV's were initiated during this patient's visit. No procedures done that require cf2 assistance. 06/03 00:02 Patient visited by Trisha Gonzales RN. cf2 09:40 T-Sheet-- Draft Copy was scanned into [employer] and attached to record. gb Administered Medications: 06/02 23:35 Drug: Amoxicillin-Clavulanate 1 tabs [amoxicillin 875 mg-potassium clavulanate 125 mg cf2 tablet (1 tabs)] Route: PO; Order Results: There are currently no results for this order. Outcome: 23:27 Discharge ordered by Provider. cs11 23:32 Discharge Assessment: Patient awake, alert and oriented x 3. No cognitive and/or cf2 functional deficits noted. Patient verbalized understanding of disposition instructions. Patient awake and alert. Oriented to person, place and time. patient administered narcotics - no. The following High Risk Discharge criteria are identified: None. Discharged to home ambulatory, with significant other. Condition: good Condition: stable. Discharge instructions given to patient, Instructed on discharge instructions, follow up and referral plans. Demonstrated understanding of instructions, medications, Prescriptions given X 1. No special radiology studies were completed. 06/03 00:03 Patient left the ED. cf2 Signatures: Briseida Cesar, Jonathan Reg gb Sotero Montoya DO DO cs11 Cheryle Nicole gr2 Alex Rodriguez,RN RN jmb Sonia Song,RN RN ms18 Trisha Gonzales,RN RN cf2 Kaiser Wilder, Reg Reg pm4 Chart Complete MTDD
--- NOTE | 2016-06-05 01:04 | EDDOCDS ---
Physician Documentation [facility] Name: Cristine Saldana Age: 20 yrs Sex: Female : 1995 Arrival Date: 06/02/2016 Time: 22:37 Bed 7 Private MD: LAUREL Robin Disposition: 06/02/16 23:27 Discharged to Home/Self Care. Impression: Encounter for other postprocedural aftercare. - Condition is Stable. - Prescriptions for Augmentin 500- 125 mg Oral Tablet - take 1 tablet by ORAL route every 8 hours for 5 days; 14 tablet. - Medication Reconciliation, Local Pharmacy Hours form. - Follow up: Abiel Thrasher; When: Call to arrange an appointment; Reason: Recheck today's complaints. - Problem is new. - Symptoms have improved. Historical: - Allergies: SULFA (SULFONAMIDES); - Home Meds: 1. Lexapro 10 mg Oral tab 1 tab once daily 2. xanax 0.5 mg 1 mg three times a day PRN when leaving the house 3. Nexium 40 mg Oral cpDR 1 cap once daily - PMHx: Agoraphobia; Anxiety; Depression; Panic Disorder; GERD; - PSHx: Appendectomy; - Social history: Smoking status: Patient states was never smoker of tobacco. No barriers to communication noted, The patient speaks fluent Turkish. - Family history: Not pertinent. - : The pt / caregiver states he / she is not on anticoagulants. Home medication list is obtained from the patient. - Exposure Risk Screening:: None identified. 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 6 in. (167.64 cm) (R); Pain 5/10; 23:32 BP 132 / 78; Pulse 98; Resp 16; Temp 98.0; Pulse Ox 99% ; Pain 5/10; cf2 22:40 Body Mass Index 54.07 (151.95 kg, 167.64 cm) gr2 MDM: 23:14 Financial registration complete. pm4 23:18 Amoxicillin-Clavulanate 875 mg 1 tabs PO once ordered. cs11 23:25 [facility] Payment Agreement was scanned into [employer] and attached to record. pm4 06/03 09:40 T-Sheet-- Draft Copy was scanned into [employer] and attached to record. gb Administered Medications: 06/02 23:35 Drug: Amoxicillin-Clavulanate 1 tabs [amoxicillin 875 mg-potassium clavulanate 125 mg cf2 tablet (1 tabs)] Route: PO; Signatures: Briseida Cesar, Reg Reg gb Sotero Montoya, DO cs11 Sonia Song,RN RN ms18 Trisha GonzalesRN RN cf2 Kaiser Wilder, Reg Reg pm4 The chart was reviewed and I authenticate all verbal orders and agree with the evaluation and treatment provided.Attachments: 23:25 [facility] Payment Agreement pm4 06/03 09:40 T-Sheet-- Draft Copy gb Chart Complete MTDD
== END 2016-06-03 00:03 | disposition home or self-care (01) ==
LOC: M ED 22:37
DX: Z48.89 Encounter for other specified surgical aftercare (principal); F40.00 Agoraphobia, unspecified; F32.9 Major depressive disorder, single episode, unspecified; F41.0 Panic disorder [episodic paroxysmal anxiety]; K21.9 Gastro-esophageal reflux disease without esophagitis; Q42.8 Congenital absence, atresia and stenosis of other parts of large intestine; Z79.899 Other long term (current) drug therapy; Z88.2 Allergy status to sulfonamides

== ENCOUNTER 2016-08-01 20:49 | Emergency (ER) | payer OTHER ==
[~2016-08-01] VITALS: Ht 167.6 cm; Wt 156.5 kg
[2016-08-01 21:01] VITALS: BP 144/96
[2016-08-01] MEDS ORDERED: MACR100C3 PO (21:35)
[2016-08-01] MEDS ORDERED: PYRI200T5 PO (21:35)
[2016-08-01] MEDS ORDERED: NITROFURANTOIN (MACROBID) 100 MG CAP PO ONE (21:45)
[2016-08-01] MEDS ORDERED: PHENAZOPYRIDINE 100 MG TAB PO ONE (21:45)
== END 2016-08-01 21:45 | disposition home or self-care (01) ==
LOC: M ED 21:38
DX: N30.90 Cystitis, unspecified without hematuria (principal); F17.210 Nicotine dependence, cigarettes, uncomplicated; Z88.2 Allergy status to sulfonamides; Z79.899 Other long term (current) drug therapy

== ENCOUNTER 2016-09-01 22:19 | Emergency (ER) | payer OTHER ==
[~2016-09-01] VITALS: Ht 167.6 cm; Wt 154.2 kg
[~2016-09-01 22:19] MED LIST changes: +MACR100C3 PO; +PYRI200T5 PO
[2016-09-02 02:25] LABS: BASO # 0.1 K/mm3 (0.0-0.2); BASO % 0.4 % (0.0-1.0); EOS # 0.3 K/mm3 (0.0-0.50); EOS % 1.8 % (0.0-3.0); LARGE UNSTAINED CELL # 0.2 K/mm3 (0.0-0.4); LYMPH % 22.2 % (24.0-44.0); MEAN CORPUSCULAR HEMOGLOBIN 26.6 pg (27.0-33.0); MEAN CORPUSCULAR HGB CONC 31.9 g/dl (32.0-36.5); MEAN CORPUSCULAR VOLUME 83.5 fl (80.0-96.0); MONO # 0.7 K/mm3 (0.0-0.8); MONO % 3.8 % (0.0-5.0); NEUTROPHILS # 12.3 K/mm3 (1.8-7.7); NEUTROPHILS % 70.9 % (36.0-66.0); PLATELET COUNT, AUTOMATED 385 k/mm3 (150-450); RED CELL DISTRIBUTION WIDTH 14.1 % (11.5-14.5); WHITE BLOOD COUNT 17.4 K/mm3 (4.0-10.0)
[2016-09-02 02:40] LABS: CONTROL LINE HCG INT CTR LINE PRESENT
[2016-09-02 02:48] LABS: ALBUMIN 3.1 GM/DL (3.2-5.2); ALBUMIN/GLOBULIN RATIO 0.89 (1.00-1.93); ALKALINE PHOSPHATASE 104 U/L (45-117); ALT/SGPT 17 U/L (12-78); ANION GAP 9 MEQ/L (8-16); AST/SGOT 9 U/L (15-37); BILIRUBIN,DIRECT < 0.1 MG/DL (0.0-0.2); BILIRUBIN,TOTAL 0.5 MG/DL (0.2-1.0); BLOOD UREA NITROGEN 9 MG/DL (7-18); CARBON DIOXIDE LEVEL 27 MEQ/L (21-32); CHLORIDE LEVEL 105 MEQ/L (98-107); CREATININE FOR GFR 0.74 MG/DL (0.55-1.02); GLOMERULAR FILTRATION RATE > 60.0 (>60); GLUCOSE, FASTING 83 MG/DL (70-105); POTASSIUM SERUM 4.1 MEQ/L (3.5-5.1); SODIUM LEVEL 141 MEQ/L (136-145); TOTAL PROTEIN 6.6 GM/DL (6.4-8.2)
--- NOTE | 2016-09-02 05:10 | REPUSA ---
CLINICAL HISTORY: Abdominal pain. TECHNIQUE: Realtime sonographic images were obtained in multiple projections. COMMENTS: The liver is of normal size, parenchyma demonstrates increased echogenicity. No discrete hepatic mass is seen. There is no intra or extrahepatic biliary ductal dilatation. CBD measures 4.1 mm. The gallbladder is physiologically distended without evidence of calculi. The gallbladder wall is not thickened and ther e is no pericholecystic fluid. There is no abdominal ascites. The right kidney measures 12.2x6.2x5 cm, free of hydronephrosis. IMPRESSION: Fatty liver infiltration. No evidence of cholelithiasis. Thank you for your kind referral of this patient.
[2016-09-02] MEDS ORDERED: GASTROGRAFIN SOLUTION 30ML PO ONE (06:55)
[2016-09-02] MEDS ORDERED: GASTROGRAFIN SOLUTION 30ML (Q9963) PO ONE (07:25)
[2016-09-02] MEDS ORDERED: ISOVUE-370 76% 100ML VIAL (Q9967) As Ordered ONE (07:51)
--- NOTE | 2016-09-02 08:18 | ECGEPIP ---
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
[2016-09-02 08:30] LABS: BASO % 0.3 % (0.0-1.0); EOS # 0.3 K/mm3 (0.0-0.50); EOS % 1.8 % (0.0-3.0); LARGE UNSTAINED CELL # 0.1 K/mm3 (0.0-0.4); LARGE UNSTAINED CELL % 0.8 % (0.0-4.0); LYMPH # 3.3 K/mm3 (1.5-6.5); LYMPH % 19.9 % (24.0-44.0); MEAN CORPUSCULAR HEMOGLOBIN 27.4 pg (27.0-33.0); MEAN CORPUSCULAR HGB CONC 32.8 g/dl (32.0-36.5); MEAN CORPUSCULAR VOLUME 83.4 fl (80.0-96.0); MONO # 0.7 K/mm3 (0.0-0.8); MONO % 4.1 % (0.0-5.0); NEUTROPHILS # 11.7 K/mm3 (1.8-7.7); NEUTROPHILS % 73.1 % (36.0-66.0); PLATELET COUNT, AUTOMATED 332 k/mm3 (150-450); RED CELL DISTRIBUTION WIDTH 14.2 % (11.5-14.5)
--- NOTE | 2016-09-02 08:39 | REP ---
Clinical: Epigastric and abdominal pain. Technique: Upright view of the chest with supine and upright views of the abdomen and pelvis. Findings: Frontal upright view of the chest demonstrates no acute cardiopulmonary process or free air below the diaphragm to suspect pneumoperitoneum. Supine and upright views of the abdomen and pelvis demonstrate nonspecific bowel gas pattern without obstruction or perforation. No organomegaly. No abnormal calcifications. Skeletal structures normal for age. Impression: Nonspecific bowel gas pattern. Signed by Raciel Friedman MD 09/02/2016 08:30 A
--- NOTE | 2016-09-02 09:02 | REP ---
Clinical: Right upper quadrant pain with leukocytosis. Technique: Axial contrast enhanced images from the lung bases to the pubic symphysis using oral and 100 ml Isovue 370 intravenous contrast material with coronal and sagittal re-formations. Comparison: 05/25/2016. Findings: Lung bases clear. Visualized heart and pericardium normal. Liver, spleen, pancreas, gallbladder, bilateral adrenal glands and kidneys are normal. The enteric system is without obstruction or acute inflammatory process. The patient appears to be status post appendectomy. Pelvis demonstrates normal bladder and age-appropriate uterus/adnexa. No ascites. No free air. No adenopathy. No mass lesion. Vasculature appears normal. There is evidence for bilateral L5 spondylolysis without spondylolisthesis. Impression: No acute intra-abdominal or pelvic pathology appreciated. 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
[2016-09-02 10:30] VITALS: BP 109/58
== END 2016-09-02 10:39 | disposition home or self-care (01) ==
LOC: M ED 23:45
DX: R10.9 Unspecified abdominal pain (principal); K76.0 Fatty (change of) liver, not elsewhere classified; M47.817 Spondylosis without myelopathy or radiculopathy, lumbosacral region; E66.9 Obesity, unspecified; Z90.89 Acquired absence of other organs; Z79.899 Other long term (current) drug therapy; Z88.2 Allergy status to sulfonamides
CPT/HCPCS: 36415; 74022; 74177; 76705; 80048; 80076; 81001; 83690; 84703; 85025; 85379; 93005; 99285; Q9963; Q9967